=== PATIENT | male | born 1935 | race Caucasian/White ===

== ENCOUNTER 2019-06-10 04:15 | Outpatient (RCR) | payer MEDICARE, MEDICAID, SELFPAY | END 2019-06-28 00:01 | LOC: LAB 04:15 | PROVIDERS: Visit Provider Nurse Practitioner Family | DX: F03.90 Unspecified dementia, unspecified severity, without behavioral disturbance, psychotic disturbance, mood disturbance, and anxiety (principal); R63.4 Abnormal weight loss | CPT/HCPCS: 36415; 80053; 84443; 85025 ==